=== PATIENT | female | born 1970 | race African-American/Black ===

== ENCOUNTER → 2024-03-17 | Outpatient (CLI) | payer BC | END | disposition home or self-care (01) | LOC: MAMMO 08:51 | PROVIDERS: ATTEND Internal Medicine | DX: R59.0 Localized enlarged lymph nodes (principal); N64.4 Mastodynia | CPT/HCPCS: 76642; 77062; 77066; G0279 ==

== ENCOUNTER → 2024-04-04 | Day surgery (SDC) | payer BC ==
[~2024-04-04] MED LIST: LIDOCAINE HCL/EPINEPHRINE 1%-EPI 1:100,000 20ML VIAL ONE; SODIUM BICARBONATE 4% 2.4MEQ/5ML VIAL IV ONE
== END | disposition home or self-care (01) ==
LOC: RAD 08:37
PROVIDERS: ATTEND Internal Medicine
DX: N63.20 Unspecified lump in the left breast, unspecified quadrant (principal); N60.42 Mammary duct ectasia of left breast; D24.2 Benign neoplasm of left breast; R92.8 Other abnormal and inconclusive findings on diagnostic imaging of breast; Z79.899 Other long term (current) drug therapy; Z98.890 Other specified postprocedural states
CPT/HCPCS: 19083; 88305; J3490 ×2; 19281

== ENCOUNTER → 2024-10-27 | Outpatient (CLI) | payer BC | END | disposition home or self-care (01) | LOC: RAD 09:31 | PROVIDERS: ATTEND Internal Medicine | DX: R92.322 Mammographic fibroglandular density, left breast (principal); R92.2 Inconclusive mammogram; Z98.890 Other specified postprocedural states | CPT/HCPCS: 76641; 77062; 77065; G0279 ==